=== PATIENT | female | born 1990 | race Caucasian/White ===

== ENCOUNTER 2019-08-02 10:29 | Emergency (ER) | payer OTHER ==
[~2019-08-02] VITALS: Ht 160 cm; Wt 54.4 kg
[2019-08-02] MEDS ORDERED: NORCO 5-325 TA1 EAC1 PO (11:05)
[2019-08-02] MEDS ORDERED: BACTRIM DS TAB1 EACH PO (11:05)
[2019-08-02 11:12] VITALS: BP 134/75
== END 2019-08-02 11:12 | disposition home or self-care (01) ==
LOC: M.ERS 10:29
DX: L02.416 Cutaneous abscess of left lower limb (principal); Z91.040 Latex allergy status